=== PATIENT | female | born 1975 | race Hispanic/Latino ===

== ENCOUNTER 2020-06-26 01:10 | Emergency (ER) | payer OTHER ==
[2020-06-26 02:37] LABS: Bacteria/HPF 1+ HPF (None Seen); Bilirubin Negative (Negative); Blood, Urine 3+ (Negative); Clarity Clear (Clear); Glucose, Urine (Dipstick) Normal (Negative); Ketone, Urine Negative (Negative); Leukocyte Negative Leu/uL (Negative); Nitrite Negative (Negative); Pregnancy Test - Urine (BHCG) Negative (Negative); Pregu Control Background? CLEAR/WHITE (CLR/WHITE); Pregu Control Bar Appear? YES (CONTROL BAR); Protein, Urine (Dipstick) Negative (Neg-Trace); Specific Gravity 1.008 (1.002-1.036); Specific Gravity, Urine 1.008 (1.002-1.036); Squamous Epithelial 0-3 HPF (0-3); Urobilinogen Normal mg/dL (Less than 2); WBC/HPF 0-3 HPF (0-3)
--- NOTE | 2020-06-26 08:00 | CT ---
PRELIMINARY REPORT/[facility]/EMERGENCY AFTER HOURS PROCEDURE Receipt of this report by the clinical staff was confirmed with Nancy Ruiz MD by John Bell on Jun 26, 2020 03:17:00 [facility]. Addendum electronically signed by Sandra Bell on June 26, 2020 3:17:36 AM [facility] EXAM: CT Abdomen and Pelvis Without Intravenous Contrast CLINICAL HISTORY: LUQ PAIN THAT BEGAN WHILE SLEEPING TONIGHT. PT DENIES INJURY TECHNIQUE: Axial computed tomography images of the abdomen and pelvis without intravenous contrast. CONTRAST: None. COMPARISON: None provided. FINDINGS: LUNG BASES: No basilar airspace consolidation or pleural effusion. LIVER: Unremarkable. GALLBLADDER AND BILE DUCTS: Unremarkable. No calcified stone. No ductal dilation. PANCREAS: Unremarkable. SPLEEN: Unremarkable. ADRENAL GLANDS: Unremarkable. KIDNEYS, URETERS, AND BLADDER: Unremarkable. No hydronephrosis or nephrolithiasis. No ureteral or bladder calculi. STOMACH AND BOWEL: No obstruction. No wall thickening. No CT evidence of colitis or acute diverticulitis. APPENDIX: No CT evidence for appendicitis. PERITONEUM: No free fluid. No free air. LYMPH NODES: No lymphadenopathy. REPRODUCTIVE: There is a large mixed attenuated mass extending up out of the pelvis into the abdomen. This appears to be a mass of the uterus with multiple coarse calcifications noted. Multiple fibroids in the uterus are suspected. The mass measures 23 x 12.6 x 19.1 cm. The ovaries are not visualized on this study. VASCULATURE: No aortic aneurysm. ABDOMINAL WALL AND SOFT TISSUES: There is a small fat-containing umbilical hernia cavity. There is a 4.8 x 2.8 cm lipoma in the soft tissues of the right flank. BONES: No fracture or suspicious osseous abnormality. IMPRESSION: Large mixed attenuated soft tissue mass extending up out of the pelvis most likely the uterus with mu ltiple fibroids. Multiple calcifications are noted. The mass measures 23 x 12.6 x 19.1 cm. The ovaries are not identified separate from this mass. There is no evidence of intestinal or urinary tract obstruction. ELECTRONICALLY SIGNED BY: Katiuska Coates DO Jun 26, 2020 3:15:37 AM [facility] This report is intended for review by the ordering physician only, in accordance of law. If you recei ve this report in error, please call [facility] at [phone]. FINAL REPORT CT Stone Protocol History: Left upper quadrant pain Comparison: None. Findings/Impression: Concordant with the preliminary report. Gynecologic consultation for hysterectom y evaluation recommended. Transcribed Date/Time: 06/26/2020 8:07 AM
--- NOTE | 2020-07-04 13:12 | EKG ---
Test Reason : Blood Pressure : / mmHG Vent. Rate : 073 BPM Atrial Rate : 073 BPM P-R Int : 170 ms QRS Dur : 082 ms QT Int : 390 ms P-R-T Axes : 051 113 053 degrees QTc Int : 429 ms Normal sinus rhythm Left posterior fascicular block ST abnormality, possible digitalis effect Abnormal ECG Confirmed by LEE GARCIA ([id number]), technical writer and editor DONNY HIGH ([id number]) on 07/04/2020 1:12:24 PM Referred By: Confirmed By:LEE GARCIA
== END 2020-06-26 03:56 ==
LOC: ERS 01:10
DX: D25.9 Leiomyoma of uterus, unspecified (principal); F41.9 Anxiety disorder, unspecified; R10.12 Left upper quadrant pain; D64.9 Anemia, unspecified
CPT/HCPCS: 74176; 81003; 81015; 81025; 93005

== ENCOUNTER 2021-07-07 19:15 | Emergency (ER) | payer OTHER ==
[2021-07-07 19:42] LABS: #Basophils 0.1 thou/uL (0.0-0.2); #Eosinphils 0.2 thou/uL (0.0-0.7); #Lymphocytes 1.6 thou/uL (1.20-3.40); #Monocytes 0.5 thou/uL (0.11-0.59); #Neutrophils 2.7 thou/uL (1.40-6.50); %Basophils 1.5 % (0.0-1.0); %Eosinophils 3.9 % (0.0-10.0); %Lymphocytes 31.2 % (21.0-51.0); %Neutrophils 53.4 % (42.0-75.0); Hemoglobin 7.2 g/dL (12.0-16.0); Mean Corpuscular HGB CONC 31.8 g/dL (32.0-36.0); Mean Corpuscular Hemoglobin 27.2 pg (27.0-31.0); Mean Corpuscular Volume 85.6 fL (78.0-98.0); Mean Platelet Volume 9.8 fL (7.4-10.4); Platelet Count 244 thou/uL (130-400); RBC Distribution Width 16.5 % (11.5-14.5); Red Blood Cell (RBC) Count 2.65 mill/uL (4.20-5.40); White Blood Cell (WBC) Count 5.1 thou/uL (4.8-10.8)
[2021-07-07] MEDS ORDERED: Ketorolac Tromethamine 30 MG/ML VIAL ONE (20:06)
== END 2021-07-07 21:30 | disposition home or self-care (01) ==
LOC: ERS 19:15
DX: N93.9 Abnormal uterine and vaginal bleeding, unspecified (principal); D64.9 Anemia, unspecified; Z87.891 Personal history of nicotine dependence; Z79.899 Other long term (current) drug therapy
CPT/HCPCS: 36415; 76856; 85025; 86900; 86901; 96372; J1885